=== PATIENT | female | born 1985 | race American Indian/Alaskan Native ===

== ENCOUNTER 2020-08-06 12:14 | Emergency (ER) | payer OTHER ==
[2020-08-06 12:24] VITALS: BP 139/87
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
== END 2020-08-06 13:10 | disposition home or self-care (01) ==
LOC: ED 12:14
DX: S12.9XXA Fracture of neck, unspecified, initial encounter (principal); S39.012A Strain of muscle, fascia and tendon of lower back, initial encounter; E11.9 Type 2 diabetes mellitus without complications; Z79.899 Other long term (current) drug therapy; V49.49XA Driver injured in collision with other motor vehicles in traffic accident, initial encounter; Y93.89 Activity, other specified; Y92.488 Other paved roadways as the place of occurrence of the external cause; Y99.8 Other external cause status
CPT/HCPCS: 99281